=== PATIENT | male | born 1985 | race Caucasian/White ===

== ENCOUNTER 2018-06-28 20:36 | Emergency (ER) | payer SELFPAY ==
[~2018-06-28] VITALS: Ht 188 cm; Wt 100.0 kg
[2018-06-28 20:41] VITALS: BP 151/85
== END 2018-06-28 21:00 | disposition left against medical advice (07) ==
LOC: EMS 20:38
DX: F41.9 Anxiety disorder, unspecified (principal); Z53.21 Procedure and treatment not carried out due to patient leaving prior to being seen by health care provider